=== PATIENT | male | born 1970 | race Two or more races ===

== ENCOUNTER 2019-09-22 19:04 | Inpatient (IN) | payer MEDICAID ==
[~2019-09-22] VITALS: Ht 165.1 cm; Wt 88.6 kg
--- NOTE | 2019-09-22 19:12 | NUR ---
BIBRA FOR C/O RESPIRATORY DISTRESS. PT WAS ARRIVED ON CPAP. PER RA PT WAS SATTING ON 70s ON R/A AT HOME. NO PMH OS RESIRATORY DIS WAS REPORTED, PT WAS PLACED ON A MONITRO ,SEEMS AGITATED AND UNABLE TO FOLLOW COMMANDS
[2019-09-22] MEDS ORDERED: PROPOFOL 100 ML ONE (19:23)
--- NOTE | 2019-09-22 19:23 | NUR ---
PT GOT ENTUBATED SUCCESSFULY BY DR. HARDIN, AT THE BED SIDE. SIZE: 7.5, AT LIP: 23
--- NOTE | 2019-09-22 19:25 | NUR ---
IV LINE ESTABLISHED, BLOOD DRAWN AND SENT TO LAB.
[2019-09-22] MEDS ORDERED: FENTANYL CITRAT IV 2,500 MCG in IV NS 0.9% 200 ML IV PRN (19:30)
[2019-09-22] MEDS: PROPOFOL 100 ML IV PRN ×6 (19:30→22:44)
--- NOTE | 2019-09-22 19:30 | NUR ---
URINE SPECIMEN COLLECTED VIA STRAIGHT.
--- NOTE | 2019-09-22 19:30 | NUR ---
PROPOFOL STARTED AT THE RATE OF 5MCG/KG. PT REMAINED ON CONT MONITORING,.
--- NOTE | 2019-09-22 19:35 | NUR ---
NG TUBE WAS INSERTED SUCCESSFULY
[2019-09-22 19:36] LABS: BASOPHILS # (AUTO) 0.2 /CMM (0.0-0.2); BASOPHILS % (AUTO) 1.3 % (0.0-2.0); EOSINOPHILS % (AUTO) 6.6 % (0.0-6.0); HEMATOCRIT 29 % (39-51); HEMOGLOBIN 9.3 g/dL (13.5-17.5); LYMPHOCYTES % (AUTO) 12.3 % (20.0-44.0); MEAN CORPUSCULAR HGB CONC 33 g/dl (31.0-36.0); MEAN CORPUSCULAR VOLUME 93 fL (80-96); MONOCYTES # (AUTO) 0.7 /CMM (0.1-1.30); MONOCYTES % (AUTO) 4.3 % (2.0-12.0); NEUTROPHILS % (AUTO) 75.5 % (43.0-81.0); PLATELET COUNT (AUTO) 253 /CMM (150-450); WHITE BLOOD COUNT (AUTO) 15.9 K/uL (4.3-11.0)
--- NOTE | 2019-09-22 19:43 | NUR ---
RT NOTIFIED OF PT ETA IN ER AND BIPAP EQUIPMENT CHECKED. PT ARRIVED VIA FIRE RESCUE ON CPAP MASK. MD VERBAL ORDER TO INITIATE BIPAP. PT BECAME AGITATED WITH STAFF AT THIS TIME AND WOULD NOT ALLOW THE BIPAP MASK TO BE PLACED. PT IN RESP DISTRESS AND SWINGING ARMS AND PULLING AND ROLL IN ER BED. MD ORDER TO INTUBATE PT FOR AIRWAY PROTECTION. PT INTUBATED WITH 7.5 ETT @23CM VIA GLIDESCOPE. POSITIVE COLOR CHANGE, MIST IN TUBE AND BILATERAL BREATH SOUNDS. ETT SECURED WITH TUBE DUDLEY. PT PLACED ON VENT SETTINGS AC 18 500 100% +5 WITH AN ABG TO FOLLOW. Addendum: 09/22/19 at 1948 by SANDY MADRIGAL RT Amended: Links added.
[2019-09-22 19:44] LABS: CREATININE 5.3 mg/dL (0.6-1.3)
--- NOTE | 2019-09-22 19:49 | NUR ---
CALLED NURSING SUP FOR ICU BED.
[2019-09-22 19:57] LABS: ALBUMIN 2.1 g/dL (3.4-5.0); BILIRUBIN,DIRECT 0.1 mg/dL (0.0-0.2); BILIRUBIN,TOTAL 0.2 mg/dL (0.2-1.0); TOTAL PROTEIN, SERUM 6.5 g/dL (6.4-8.2)
[2019-09-22 20:01] LABS: APPEARANCE,URINE Turbid (CLEAR); BILIRUBIN,URINE Negative (NEGATIVE); BLOOD, URINE Moderate Ery/uL (NEGATIVE); COLOR,URINE Yellow (YELLOW); KETONES,URINE Negative (NEGATIVE); LEUKOCYTE ESTERASE ,URINE Negative (NEGATIVE); NITRITE, URINE Negative (NEGATIVE); PROTEIN,URINE >=300 mg/dl (NEGATIVE); UGLUCOSE 250 MG/DL mg/dL (NEGATIVE); UROBILINOGEN,URINE 0.2 EU/dL (0.2)
[2019-09-22 20:26] LABS: RBC,URINE 21-50 /HPF (0-2)
[2019-09-22 20:27] LABS: BACTERIA,URINE Few /HPF (None Seen); SQUAMOUS EPITHELIAL CELL,UR Few /HPF (None Seen); WBC,URINE 0-2 /HPF (0-3)
[2019-09-22] MEDS ORDERED: PIPERACILLIN /TAZOBACTAM 2.25 G in IV D5W 50 ML IV ONE (20:30)
[2019-09-22] MEDS ORDERED: FUROSEMIDE 40 MG/4 ML VIAL IV ONE (20:30)
[2019-09-22] MEDS ORDERED: FUROSEMIDE 40 MG/4 ML VIAL ONE (20:39)
--- NOTE | 2019-09-22 20:45 | NUR ---
END TIME FOR LEANAN 2115 L HAND 18G
--- NOTE | 2019-09-22 20:47 | NUR ---
ROOM GIVEN ICU 263
[2019-09-22] MEDS ORDERED: VANCOMYCIN 1.25 GM in IV D5W 250 ML IV ONE (21:00)
[2019-09-22] MEDS ORDERED: ASPI-1152 PO (21:06)
[2019-09-22] MEDS ORDERED: ATOR80TA PO (21:06)
[2019-09-22] MEDS ORDERED: FURO-144 PO (21:06)
[2019-09-22] MEDS ORDERED: HYDR100T27 PO (21:06)
[2019-09-22] MEDS ORDERED: CARV25TA2 PO (21:06)
--- NOTE | 2019-09-22 21:12 | NUR ---
report given to Ilene @ ICU
[2019-09-22 21:17] LABS: ABG BASE EXCESS -11.2 mmol/L; ABG OXYGEN SATURATION 89.8 % (92.0-98.5); ABG PCO2 34.9 mmHg (35.0-45.0); ABG PH 7.253 (7.350-7.450); ABG PO2 63.5 mmHg (75.0-100.0); AaDO2 325.9 mmHg; COHb 0.4 % (0.5-1.5); MetHb 0.6 % (0.0-1.5); O2Hb 88.9 % (94.0-97.0); PEEP,BG 5 cm H2O; SITE, ABG Left Radial; VENT MODE, BG AC 18 500 60% +5; VT, ABG 500 mL
--- NOTE | 2019-09-22 21:30 | NUR ---
RECEIVED PATIENT IN NO ACUTE DISTRESS IN BED. PATIENT IS SEDATED ON PROPOFOL AT 50MCG. PATIENT IS INTUBATED ON MECHANICAL VENT VIA ETT. MECHANICAL VENT SETTING ARE AC 18, TV 500, FIO2 60, PEEP 5. PATIENT HAS NG TUBE THAT IS CLEAN DYR INTACT AND PATENT WITH FREE WATER FLUSH. PATIENT HAS TABOR CATHETER THAT IS CLEAN DRY INTACT AND PATENT WITH YELLOW URINE DRAINING. PATIENT HAS RIGHT AC 20G AND LEFT HAND 18G THAT ARE CLEAN DRY INTACT AND PATIENT. WILL CONTINUE TO MONITOR.
[2019-09-22 21:48] VITALS: BP 182/113
--- NOTE | 2019-09-22 21:51 | NUR ---
pt was transferre to ICU under ACLS
[2019-09-22] MEDS ORDERED: ONDANSETRON HCL/PF 4 MG/2 ML VIAL IVP PRN (22:00)
[2019-09-22] MEDS ORDERED: ACETAMINOPHEN 325 MG TABLET PO PRN (22:00)
[2019-09-22] MEDS ORDERED: ETOMIDATE 2 MG/ML VIAL IV ONE (22:00)
[2019-09-22] MEDS ORDERED: ROCURONIUM BROMIDE 50 MG/5 ML IV ONE (22:00)
[2019-09-22] MEDS ORDERED: Z GUARD REMEDY 2 OZ OINT TP PRN (22:00)
[2019-09-22] MEDS ORDERED: BUMETANIDE INJ 8 MG in IV NS 0.9% 48 ML IV ONE (22:00)
[2019-09-22 22:02] VITALS: BP 166/107
[2019-09-22 22:04] VITALS: BP 169/101
[2019-09-22 22:17] VITALS: BP 153/94
[2019-09-22] MEDS ORDERED: BUMETANIDE INJ 0.25 MG/ML VIAL ONE ×2 (22:32→22:37)
[2019-09-22 22:47] VITALS: BP 139/81
[2019-09-22] MEDS ORDERED: INSULIN REGULAR, HUMAN 100 UNIT/ML 3 ML VIAL SQ PRN (23:00)
[2019-09-22] MEDS ORDERED: DEXTROSE 50%-WATER 50 ML DISP.SYRIN IV PRN (23:00)
[2019-09-22 23:17] VITALS: BP 140/80
[2019-09-22] MEDS: ATORVASTATIN 40 MG TABLET NG SCH (23:30)
[2019-09-23] VITALS (47 sets, daily range): BP systolic 83–166; BP diastolic 48–100
[2019-09-23] MEDS: BLOOD SUGAR DIAGNOSTIC 1 EACH STRIP IN SCH ×5 (00:24→23:56)
[2019-09-23] MEDS: PROPOFOL 100 ML IV PRN ×6 (01:51→23:05)
--- NOTE | 2019-09-23 02:55 | NUR ---
NOTIFIED DR. RADHA ROUSE THAT PATIENT HAS CRITICAL LAB VALUE TROPONIN AT 11.004. LAST TROPONIN IS 0.242. RECEIVED ORDERS TO START HEPARIN DRIP. READ BACK ORDERS PERFORMED AND CARRIED OUT.
[2019-09-23] MEDS ORDERED: HEPARIN SODIUM, PORCINE 5000 UNITS/1 ML VIAL IV ONE (03:30)
[2019-09-23] MEDS: HEPARIN INFUSION/D5W 500 ML IV PRN ×2 (03:32→17:11)
[2019-09-23 05:00] LABS: BASOPHILS % (AUTO) 0.5 % (0.0-2.0); EOSINOPHILS % (AUTO) 0.7 % (0.0-6.0); HEMATOCRIT 22 % (39-51); HEMOGLOBIN 7.3 g/dL (13.5-17.5); LYMPHOCYTES # (AUTO) 0.7 /CMM (0.8-4.8); MEAN CORPUSCULAR HGB CONC 33 g/dl (31.0-36.0); MEAN CORPUSCULAR VOLUME 92 fL (80-96); MONOCYTES # (AUTO) 0.7 /CMM (0.1-1.30); MONOCYTES % (AUTO) 7.8 % (2.0-12.0); NEUTROPHILS # (AUTO) 7.7 /CMM (1.8-8.9); PLATELET COUNT (AUTO) 175 /CMM (150-450); WHITE BLOOD COUNT (AUTO) 9.2 K/uL (4.3-11.0)
[2019-09-23 05:17] LABS: ALBUMIN 1.6 g/dL (3.4-5.0); BILIRUBIN,TOTAL 0.2 mg/dL (0.2-1.0); CALCIUM, SERUM 6.7 mg/dL (8.5-10.1); CREATININE 5.3 mg/dL (0.6-1.3); MAGNESIUM 1.5 mg/dL (1.8-2.4); PHOSPHORUS 5.9 mg/dL (2.5-4.9); POTASSIUM 4.2 mmol/L (3.5-5.1)
[2019-09-23 05:50] LABS: THYROID STIMULATING HORMONE 1.356 uIU/mL (0.358-3.74)
[2019-09-23] MEDS ORDERED: BUMETANIDE INJ 16 MG in IV NS 0.9% 16 ML IV ONE (07:00)
--- NOTE | 2019-09-23 07:40 | NUR ---
ICU/RN PT IS INTUBATED ON THE VENT AC MODE,FIO2-50%.V/S STABLE,AFEBRILE.SEDATED ON PROPOFOL .BILATERAL WRIST RESTRAINS ON.LEFT MID LINE.ON HEPARIN DRIP.F/C DRAINING WITH YELLOW URINE.OG TUBE CLAMPED.
--- NOTE | 2019-09-23 07:47 | NUR ---
PATIENT REMAINS IN NO ACUTE DISTRESS IN BED. PATINET DID NOT HAVE ANY SIGNIFICANT CHANGE IN CONDITION DURING SHIFT. ALL NEEDS MET, ALL ORDERS CARRIED OUT. WILL ENDORSE CARE TO AM RN FOR CONTINUITY OF CARE.
[2019-09-23] MEDS: ASPIRIN EC 81 MG TABLET.DR PO SCH (08:10)
[2019-09-23] MEDS: hydrALAZINE HCL 50 MG TABLET NG SCH ×3 (08:11→16:06)
[2019-09-23] MEDS: CARVEDILOL 12.5 MG TABLET NG SCH ×2 (08:11→22:41)
[2019-09-23 08:37] LABS: ABG BASE EXCESS -6.8 mmol/L; ABG OXYGEN SATURATION 98.4 % (92.0-98.5); ABG PH 7.345 (7.350-7.450); ABG PO2 199.5 mmHg (75.0-100.0); AaDO2 118.8 mmHg; COHb 0.3 % (0.5-1.5); MetHb 0.7 % (0.0-1.5); O2Hb 97.4 % (94.0-97.0); PEEP,BG 5 cm H2O; SITE, ABG Left Radial; VT, ABG 500 mL
[2019-09-23] MEDS ORDERED: ROCURONIUM BROMIDE 50 MG/5 ML IV ONE (08:40)
[2019-09-23] MEDS ORDERED: ETOMIDATE 2 MG/ML VIAL IV ONE (08:40)
[2019-09-23] MEDS ORDERED: FEE EMEERGENCY 1 MIN EA MC ONE (08:40)
--- NOTE | 2019-09-23 08:51 | NUR ---
fio2 decreased from 50% to 30% due to pao2 199mmhg and spo2 100%. RN notified on changes. Addendum: 09/23/19 at 0852 by JOSH THOMPSON RT Amended: Links added.
[2019-09-23] MEDS ORDERED: HEPARIN SODIUM, PORCINE 5000 UNITS/1 ML VIAL SQ SCH (09:00)
--- NOTE | 2019-09-23 09:00 | NUR ---
ICU/RN DUE MEDS ARE GIVEN ORDERED.ABG DONE .MD NOTIFIED.PT PLACED ON 30% FIO2.LABS REVIEW.MG-1.5.NEW ORDERS RECEIVED.
--- NOTE | 2019-09-23 10:22 | NUR ---
WOUND CARE CONSULT: PT UNSTABLE TO BE TURNED FOR SKIN ASSESSMENT AT THIS TIME. DISCUSSED SKIN PROTECTION WITH NURSING STAFF. WILL SEE PT PT CONDITION PERMITS.
--- NOTE | 2019-09-23 12:23 | NUR ---
WOUND CARE CONSULT: PT SEEN FOR SKIN ASSESSMENT AND NOTED TO HAVE BONY SACRAL AREA WITH SCARRING AND DISCOLORATION/SCARRING TO LOWER EXTREMITIES, EDEMA AND SOME DISCOLORED AREAS TO BACK, ALL PRESENT ON ADMISSION. RECOMMENDATIONS MADE FOR SKIN PROTECTION. DISCUSSED WITH NURSING STAFF. WILL SEE PRN. CASILLAS IN AGREEMENT WITH PLAN OF CARE. Addendum: 09/23/19 at 1225 by ARELY KEEN WNDNU Amended: Links added.
[2019-09-23] MEDS: Magnesium 1GM/D5W 100ML PREMIX 100 ML IV SCH ×4 (12:32→15:54)
--- NOTE | 2019-09-23 14:00 | NUR ---
ICU/RN PT WILL HAVE HD CATHETER PLACEMENT.HEPARIN DRIP HELD, ORDERED BY DR HARE.FAMILY NOTIFIED.CONSENT FRANK.
[2019-09-23] MEDS: SOD FERRIC GLUC 125 MG in IV NS 0.9% 100 ML IV SCH (14:16)
--- NOTE | 2019-09-23 17:10 | NUR ---
ICU/RN NEW HD CATHETER PLACED ON THE RIGHT GROINS AREA.PT TOLERATED PROCEDURE WELL NO S/S OF BLEEDING NOTED. HEPARIN DRIP RESTARTED.PM CARE PROVIDED.DUE MEDS ARE GIVEN ORDERED.SUCTION PROVIDED.REPOSITION FOR COMFORT.PT IS SEDATED.V/S STABLE,AFEBRILE.
--- NOTE | 2019-09-23 19:00 | NUR ---
GAME BREEDING FARM MANAGER. PT WAS AGITATED, REACHING THE ETT. JOSH SOFT WRIST RESTRAINT INITIATED.
--- NOTE | 2019-09-23 20:22 | NUR ---
LAW INSTRUCTOR. HD STARTED NOW. WILL CONTINUE TO MONITOR
--- NOTE | 2019-09-23 20:23 | NUR ---
DRILL PRESSER. RECEIVED THE PT REST ON THE BED. ORALLY INTUBATED. SEDATED WITH DIPRIVAN. PT WAS AGITATED. JOSH SOFT WRIST RESTRAINT INITIATED.ETT 7.5,LIP 23,AC 18. TV 500,FIO2 30%,PEEP 5. SAT 06%. NO ACUTE DISTRESS NOTED. DOORSHAKER SHOWING NSR. IV LT UPPER ARM MIDLINE. RT FEMORAL HD CATH. OGT CLAMPED. HOB ELEVATED. RT AND LT HAND. IVS INTACT. HOB ELEVATED, DIPRIVAN 50MCG/KG/MIN,HEPARIN 1200UNIT. FC PATENT. URINE DRAINING. WILL CONTINUE TO MONITOR VITALS.
--- NOTE | 2019-09-23 22:35 | NUR ---
NUCLEAR OFFICER. HD OVER. NO FLUID REMOVED. DURING HD NO COMPLICATION NOTED.
[2019-09-23] MEDS: ATORVASTATIN 40 MG TABLET NG SCH (22:40)
[2019-09-24] VITALS (40 sets, daily range): BP systolic 108–158; BP diastolic 58–81
[2019-09-24 04:15] LABS: BASOPHILS # (AUTO) 0.1 /CMM (0.0-0.2); BASOPHILS % (AUTO) 0.7 % (0.0-2.0); EOSINOPHILS % (AUTO) 6.9 % (0.0-6.0); HEMATOCRIT 22 % (39-51); HEMOGLOBIN 7.4 g/dL (13.5-17.5); LYMPHOCYTES # (AUTO) 0.6 /CMM (0.8-4.8); LYMPHOCYTES % (AUTO) 8.8 % (20.0-44.0); MEAN CORPUSCULAR HGB CONC 34 g/dl (31.0-36.0); MEAN CORPUSCULAR VOLUME 90 fL (80-96); MONOCYTES # (AUTO) 0.6 /CMM (0.1-1.30); MONOCYTES % (AUTO) 8.4 % (2.0-12.0); NEUTROPHILS # (AUTO) 5.4 /CMM (1.8-8.9); NEUTROPHILS % (AUTO) 75.2 % (43.0-81.0); PLATELET COUNT (AUTO) 151 /CMM (150-450); RED BLOOD CELL COUNT(AUTO) 2.41 MIL/uL (4.5-6.0); WHITE BLOOD COUNT (AUTO) 7.2 K/uL (4.3-11.0)
--- NOTE | 2019-09-24 04:29 | NUR ---
HUB CUTTER. AM CARE, ORAL CARE, BED BATH GIVEN. LINEN CHANGED, REMAINING SAME VENT SETTING TOLERATED WELL. SAT 98%. NO ACUTE DISTRESS NOTED, PHYSICIAN CODING SPECIALIST SHOWING NSR. IV RT UPPER ARM PICC LINE. DIPRIVAN 50MCG/KG/MIN. HEPARIN 1200UNIT/H. FC PATENT URINE DRAINING. JOSH SOFT WRIST RESTRAINT CHECKED AND RELEASED. NO INJURY OR REDNESS NOTED, NGT CLAMPED. WILL CONTINUE TO MONITOR VITALS,
[2019-09-24 04:54] LABS: ALBUMIN 1.5 g/dL (3.4-5.0); BILIRUBIN,TOTAL 0.2 mg/dL (0.2-1.0); CALCIUM, SERUM 7.6 mg/dL (8.5-10.1); MAGNESIUM 2.2 mg/dL (1.8-2.4); PHOSPHORUS 4.1 mg/dL (2.5-4.9); POTASSIUM 3.5 mmol/L (3.5-5.1); TOTAL PROTEIN, SERUM 4.9 g/dL (6.4-8.2)
[2019-09-24] MEDS: PROPOFOL 100 ML IV PRN ×6 (05:32→23:24)
[2019-09-24] MEDS: BLOOD SUGAR DIAGNOSTIC 1 EACH STRIP IN SCH ×3 (05:56→18:00)
[2019-09-24] MEDS ORDERED: POTASSIUM CHLORIDE 20 MEQ POWDER PACKET NG SCH (07:30)
[2019-09-24] MEDS ORDERED: BUMETANIDE INJ 6 MG in IV NS 0.9% 36 ML IV ONE (07:30)
[2019-09-24] MEDS ORDERED: BUMETANIDE INJ 16 MG in IV NS 0.9% 16 ML IV ONE (07:30)
[2019-09-24] MEDS: ASPIRIN EC 81 MG TABLET.DR PO SCH (08:30)
[2019-09-24] MEDS: CARVEDILOL 12.5 MG TABLET NG SCH ×2 (08:31→21:20)
[2019-09-24] MEDS: hydrALAZINE HCL 50 MG TABLET NG SCH ×3 (08:32→17:34)
[2019-09-24 09:17] LABS: ABG BASE EXCESS 1.6 mmol/L; ABG OXYGEN SATURATION 96.4 % (92.0-98.5); ABG PCO2 31.5 mmHg (35.0-45.0); ABG PO2 95.7 mmHg (75.0-100.0); AaDO2 81.2 mmHg; COHb 0.3 % (0.5-1.5); MetHb 1.3 % (0.0-1.5); O2Hb 94.9 % (94.0-97.0); PEEP,BG 5 cm H2O; SITE, ABG Left Radial; VT, ABG 500 mL
--- NOTE | 2019-09-24 09:50 | NUR ---
vent changes below per dr. kelly: MARCELLUS 12 Addendum: 09/24/19 at 0951 by JOSH THOMPSON RT Amended: Links added.
[2019-09-24] MEDS: HEPARIN SODIUM, PORCINE 5000 UNITS/1 ML VIAL SQ SCH ×2 (11:55→21:18)
[2019-09-24] MEDS: SOD FERRIC GLUC 125 MG in IV NS 0.9% 100 ML IV SCH (14:01)
[2019-09-24] MEDS: ATORVASTATIN 40 MG TABLET NG SCH (21:20)
[2019-09-25] VITALS (72 sets, daily range): BP systolic 105–190; BP diastolic 54–105
[2019-09-25] MEDS: PROPOFOL 100 ML IV PRN ×2 (03:18→05:43)
[2019-09-25 04:40] LABS: BASOPHILS # (AUTO) 0.1 /CMM (0.0-0.2); BASOPHILS % (AUTO) 0.8 % (0.0-2.0); EOSINOPHILS % (AUTO) 9.8 % (0.0-6.0); HEMATOCRIT 21 % (39-51); LYMPHOCYTES # (AUTO) 0.9 /CMM (0.8-4.8); LYMPHOCYTES % (AUTO) 13.4 % (20.0-44.0); MEAN CORPUSCULAR HGB CONC 33 g/dl (31.0-36.0); MEAN CORPUSCULAR VOLUME 92 fL (80-96); MONOCYTES # (AUTO) 0.7 /CMM (0.1-1.30); MONOCYTES % (AUTO) 10.9 % (2.0-12.0); NEUTROPHILS # (AUTO) 4.3 /CMM (1.8-8.9); NEUTROPHILS % (AUTO) 65.1 % (43.0-81.0); PLATELET COUNT (AUTO) 155 /CMM (150-450); RED BLOOD CELL COUNT(AUTO) 2.28 MIL/uL (4.5-6.0); WHITE BLOOD COUNT (AUTO) 6.6 K/uL (4.3-11.0)
[2019-09-25 05:04] LABS: ALBUMIN 1.5 g/dL (3.4-5.0); BILIRUBIN,TOTAL 0.3 mg/dL (0.2-1.0); CALCIUM, SERUM 7.2 mg/dL (8.5-10.1); CREATININE 5.1 mg/dL (0.6-1.3); MAGNESIUM 2.1 mg/dL (1.8-2.4); PHOSPHORUS 6.1 mg/dL (2.5-4.9); POTASSIUM 3.9 mmol/L (3.5-5.1); TOTAL PROTEIN, SERUM 4.8 g/dL (6.4-8.2)
[2019-09-25 05:31] LABS: HEMOGLOBIN 6.9 g/dL (13.5-17.5)
[2019-09-25] MEDS: BLOOD SUGAR DIAGNOSTIC 1 EACH STRIP IN SCH ×5 (06:00→23:30)
[2019-09-25 06:02] LABS: EOSINOPHILS % (MANUAL) 8 % (0-4); LYMPHOCYTES % (MANUAL) 8 % (16-48); MONOCYTES % (MANUAL) 9 % (0-11.0); NEUTROPHILS % (MANUAL) 75 (42-76)
--- NOTE | 2019-09-25 07:15 | NUR ---
PASTRY SOUS CHEF OPENING NOTE RECEIVED REPORT FROM PM NURSE. PATIENT IN BED. ORALLY INTUBATED. SEDATED WITH DIPRIVAN.ON JOSH SOFT WRIST RESTRAINT.VISUAL CHECK DONE.ETT 7.5,LIP 23. NO ACUTE DISTRESS NOTED. ZUMBA INSTRUCTOR SHOWING NSR. IV LT UPPER ARM MIDLINE. RT FEMORAL HD CATH. OGT CLAMPED. HOB ELEVATED. RT AND LT HAND. IVS INTACT. HOB ELEVATED, DIPRIVAN 50MCG/KG/MIN. TABOR CATH DRAINING CLEAR YELLOW URINE.BED IS LOW AND IN LOCKED POSITION.CALL LIGHT IN REACH.BED ALARM ON .SRX3.WILL CONTINUE TO MONITOR.
--- NOTE | 2019-09-25 08:15 | NUR ---
SYSTEM ADMIN NOTE PATIENT STARTED ON SIMV TRIAL.NO SOB NO DISTRESS NOTED.TOLERATING SETTINGS WELL.PATIENT ALERT.FOLLOWING COMMANDS.RESTLESS.MATHEMATICAL SCIENTIST AT BEDSIDE WATCHING PATIENT. WILL CONTINUE TO MONITOR.
--- NOTE | 2019-09-25 08:30 | NUR ---
PROFESSOR OF GEOLOGY NOTE SEEN BY .UPDATED ABOUT PATIENT CONDITION WITH LABS.GOT NEW ORDER TO DO ABG @0845.PATIENT ON SIMV TRIAL.TOLERATING SETTINGS WELL.SAFETY AND ASPIRATION MEASURES IN PLACE.ALERT.FOLLOWING COMMANDS.TO DO BLOOD TRANSFUSION PREFERABLY WITH HEMODIALYSIS.WILL CONTINUE TO MONITOR.
[2019-09-25] MEDS: hydrALAZINE HCL 50 MG TABLET NG SCH ×3 (08:56→17:42)
[2019-09-25] MEDS: ASPIRIN EC 81 MG TABLET.DR PO SCH (08:56)
[2019-09-25] MEDS: CARVEDILOL 12.5 MG TABLET NG SCH (08:56)
[2019-09-25 09:00] LABS: ABG BASE EXCESS -4.4 mmol/L; ABG PH 7.363 (7.350-7.450); ABG PO2 109.3 mmHg (75.0-100.0); AaDO2 61.1 mmHg; MetHb 0.7 % (0.0-1.5); O2Hb 96.3 % (94.0-97.0); SITE, ABG Right Radial
[2019-09-25] MEDS: HEPARIN SODIUM, PORCINE 5000 UNITS/1 ML VIAL SQ SCH ×2 (09:00→20:35)
--- NOTE | 2019-09-25 09:15 | NUR ---
MECHANICAL ENGINEERING LECTURER NOTE ABG DONE.RELAYED RESULT TO BY RT.GOT AN ORDER FOR EXTUBATE THE PATIENT.PATIENT GOT EXTUBATED.PLACED ON 2L NASAL.SATURATING 98%.NO SOB NO DISTRESS NOTED.AXOX3.PATIENT COMFORTABLE.NO C/O PAIN.WILL CONTINUE TO MONITOR.
--- NOTE | 2019-09-25 09:23 | NUR ---
PER DR ACE ORDERS PATIENT WAS WEANED AND EXTUBATED. PLACED ON SUPPLEMENTAL O2 TOLERATING WELL. PATIENT AWAKE, ALERT AND RESPONDING TO COMMANDS. NO SOB REPORTED. JENNIFER LÓPEZ AT BEDSIDE. CONT TO MONITOR. Addendum: 09/25/19 at 0924 by PETER PRESCOTT RT Amended: Links added.
--- NOTE | 2019-09-25 09:29 | NUR ---
RETURNED ITEM CLERK NOTE SEEN BY .PATIENT HAS LOW H/H.HOLDING HEPARIN PER HIS ORDER.RECOMMENDING ANGIOGRAM.PATIENT NEED TIME TO THINK ABOUT IT AND WILL LET US KNOW LATER.WILL F/U WITH PATIENT DECISION LATER.WILL CONTINUE TO MONITOR.
[2019-09-25] MEDS ORDERED: BUMETANIDE INJ 3 MG in IV NS 0.9% 48 ML IV ONE (09:30)
[2019-09-25] MEDS: SOD FERRIC GLUC 125 MG in IV NS 0.9% 100 ML IV SCH (14:37)
--- NOTE | 2019-09-25 16:07 | NUR ---
GENETICS NURSE NOTE PATIENT IS OK TO DO ANGIOGRAM.FAMILY WAS AT BEDSIDE.EXPLAINED TO THE FAMILY AND PATIENT ANSWERED ALL QUESTIONS. MADE AWARE.NURSE FROM RECEIVING TELLER SEEN PATIENT AND EXPLAINED THE PROCEDURE.OK TO DO PROCEDURE.NEED MORE TIME TO SIGN THE CONSENT.ONGOING HEMODIALYSIS.HD NURSE AT BEDSIDE.GIVEN 1 PRBC FOR TRANSFUSE WITH HD.WILL CONTINUE TO MONITOR.
--- NOTE | 2019-09-25 16:35 | NUR ---
JR. JAVA DEVELOPER NOTE S/P BLOOD TRANSFUSION 1 PRBC WITH DIALYSIS.NO S/S OF ALLERGIC REACTION NOTED.VITAL SIGNS STABLE.PATIENT AXOX4.SIGNED CONSENT FOR ANGIOGRAM.ONGOING HD.HE REQUESTING FAMILY TO MEET HIM AFTER DIALYSIS.HE DONT WANT HIS MOM TO SEE HE IS ON DIALYSIS.SISTER JOAN MADE AWARE THAT HIS REQUEST TO VISIT AFTER 6 PM. WILL CONTINUE TO MONITOR.
[2019-09-25] MEDS ORDERED: ATORVASTATIN 40 MG TABLET NG SCH (17:16)
[2019-09-25] MEDS ORDERED: ATORVASTATIN 40 MG TABLET GT SCH (17:16)
[2019-09-25] MEDS ORDERED: ACETAMINOPHEN 650 MG/20.3 ML UDC GT PRN (17:30)
[2019-09-25] MEDS ORDERED: PHARMACY TO CHANGE GT/NG MEDS TO PO XX PRN (17:30)
[2019-09-25] MEDS ORDERED: ACETAMINOPHEN 650 MG/20.3 ML UDC NG PRN (17:30)
[2019-09-25] MEDS ORDERED: ACETAMINOPHEN 650 MG/20.3 ML UDC PO PRN (17:30)
--- NOTE | 2019-09-25 19:10 | NUR ---
MANAGER BEVERAGE CLOSING NOTE PATIENT IN BED. S/P EXTUBATION IN AM.ON O2 2L VIA NASAL CANULA.NO SOB NO ACUTE DISTRESS NOTED. SATURATING 97%.ON ORTHOPEDIC BRACE MAKER SHOWING NSR.HR IN 80'S. IV LT UPPER ARM MIDLINE. RT FEMORAL HD CATH. RT AND LT HAND. IVS INTACT. HOB ELEVATED.TABOR CATH DRAINING CLEAR YELLOW URINE.BED IS LOW AND IN LOCKED POSITION.CALL LIGHT IN REACH.BED ALARM ON .SRX3.FAMILY AT BEDSIDE.WILL ENDORSE TO PM NURSE FOR ANGEL.
[2019-09-25] MEDS ORDERED: diphenhydrAMINE HCL 50 MG/ML VIAL IV PRN (21:30)
[2019-09-25] MEDS: ATORVASTATIN 40 MG TABLET PO SCH (21:44)
[2019-09-25] MEDS: CARVEDILOL 12.5 MG TABLET PO SCH (21:45)
[2019-09-26] VITALS (52 sets, daily range): BP systolic 130–176; BP diastolic 56–102
[2019-09-26] MEDS: METOPROLOL TARTRATE INJ 5 MG/5 ML AMPUL IVP PRN ×3 (00:32→17:40)
[2019-09-26 04:32] LABS: BASOPHILS # (AUTO) 0.1 /CMM (0.0-0.2); BASOPHILS % (AUTO) 0.7 % (0.0-2.0); EOSINOPHILS % (AUTO) 16.1 % (0.0-6.0); HEMATOCRIT 24 % (39-51); HEMOGLOBIN 7.9 g/dL (13.5-17.5); LYMPHOCYTES # (AUTO) 1.1 /CMM (0.8-4.8); LYMPHOCYTES % (AUTO) 14.3 % (20.0-44.0); MEAN CORPUSCULAR HGB CONC 33 g/dl (31.0-36.0); MEAN CORPUSCULAR VOLUME 91 fL (80-96); MONOCYTES # (AUTO) 0.9 /CMM (0.1-1.30); MONOCYTES % (AUTO) 12.3 % (2.0-12.0); NEUTROPHILS # (AUTO) 4.3 /CMM (1.8-8.9); NEUTROPHILS % (AUTO) 56.6 % (43.0-81.0); PLATELET COUNT (AUTO) 134 /CMM (150-450); RED BLOOD CELL COUNT(AUTO) 2.66 MIL/uL (4.5-6.0); WHITE BLOOD COUNT (AUTO) 7.6 K/uL (4.3-11.0)
[2019-09-26 04:44] LABS: ALBUMIN 1.5 g/dL (3.4-5.0); BILIRUBIN,TOTAL 0.4 mg/dL (0.2-1.0); CALCIUM, SERUM 7.8 mg/dL (8.5-10.1); CREATININE 4.4 mg/dL (0.6-1.3); MAGNESIUM 2.1 mg/dL (1.8-2.4); PHOSPHORUS 5.6 mg/dL (2.5-4.9); POTASSIUM 3.7 mmol/L (3.5-5.1); TOTAL PROTEIN, SERUM 5.1 g/dL (6.4-8.2)
[2019-09-26] MEDS ORDERED: IODIXANOL 150 ML IV ONE ×2 (06:13→08:10)
[2019-09-26] MEDS ORDERED: IV NS 0.9% 1,000 ML ONE (06:15)
[2019-09-26] MEDS ORDERED: IV SET PRIMARY PUMP SET 1 EA INFUS.SET MC ONE ×2 (06:15→08:03)
[2019-09-26] MEDS ORDERED: LIDOCAINE HCL/PF 1% 30 ML SDV ONE (06:16)
[2019-09-26] MEDS ORDERED: VERAPAMIL HCL IV 5 MG/2 ML VIAL ONE (06:16)
[2019-09-26] MEDS ORDERED: NITROGLYCERIN ICAR 1,000 MCG/10 ML VIAL ICAR ONE (06:16)
[2019-09-26] MEDS: BLOOD SUGAR DIAGNOSTIC 1 EACH STRIP IN SCH ×4 (06:53→23:10)
--- NOTE | 2019-09-26 07:00 | NUR ---
received pt from night auditor, alert, follow commands, SR, on 2L 02 sat well, lungs partially congested, f/c low output HD pt, v/s stable, no pain, pt is going to be taken to technology lab teacher.
--- NOTE | 2019-09-26 07:15 | NUR ---
BEING TAKEN TO TRAVEL RN OR, NO DISTRESS NOTED OR VOICED
[2019-09-26] MEDS ORDERED: FENTANYL PF 100MCG/2ML AMPUL ONE (07:33)
[2019-09-26] MEDS ORDERED: HEPARIN SODIUM, PORCINE 1,000 UNIT/ML VIAL ONE (07:33)
[2019-09-26] MEDS ORDERED: MIDAZOLAM HCL 2 MG/2ML VIAL ONE (07:33)
[2019-09-26] MEDS ORDERED: IV NS 0.9% 50 ML IV ONE (08:02)
[2019-09-26] MEDS ORDERED: IODIXANOL 320MG/ML 50 ML IV ONE (08:20)
[2019-09-26] MEDS ORDERED: CLOPIDOGREL BISULFATE 300 MG TABLET ONE (08:21)
[2019-09-26] MEDS ORDERED: ASPIRIN 81 MG TAB.CHEW ONE (08:32)
[2019-09-26] MEDS ORDERED: HEPARIN SODIUM, PORCINE 5000 UNITS/1 ML VIAL ONE (08:33)
[2019-09-26] MEDS: HEPARIN SODIUM, PORCINE 5000 UNITS/1 ML VIAL SQ SCH ×2 (09:00→21:04)
[2019-09-26] MEDS: ASPIRIN EC 81 MG TABLET.DR PO SCH (09:00)
[2019-09-26] MEDS ORDERED: ASPIRIN 81 MG TAB.CHEW NG SCH (09:00)
--- NOTE | 2019-09-26 09:10 | NUR ---
pt back from metallurgy laboratory technician, a/o x4, v/s stable, no pain, TR band on, no bleeding noted, pulses are palpable, friend at the bedside
--- NOTE | 2019-09-26 09:20 | NUR ---
blood thinner med not given - heparin high dose given in labview programmer.
[2019-09-26] MEDS: CARVEDILOL 12.5 MG TABLET PO SCH ×2 (09:24→21:07)
[2019-09-26] MEDS: hydrALAZINE HCL 50 MG TABLET PO SCH ×3 (09:25→16:22)
[2019-09-26] MEDS ORDERED: BUMETANIDE INJ 6 MG in IV NS 0.9% 36 ML IV ONE (10:00)
--- NOTE | 2019-09-26 12:16 | NUR ---
pt is resting in the bed, TR band off, no bleeding noted, pulses palpable, v/s stable, no pain, family at the bedside.
[2019-09-26] MEDS: diphenhydrAMINE HCL 50 MG/ML VIAL IV PRN ×2 (13:38→23:10)
[2019-09-26] MEDS: SOD FERRIC GLUC 125 MG in IV NS 0.9% 100 ML IV SCH (15:05)
--- NOTE | 2019-09-26 16:07 | NUR ---
pt is resting in the bed, a/o x4, SR, on 2L 02 sat well, tolerates diet, v/s stable, no pain, pt cleaned and changed.
[2019-09-26] MEDS: ATORVASTATIN 40 MG TABLET PO SCH (21:07)
[2019-09-26] MEDS: ACETAMINOPHEN 325 MG TABLET PO PRN (21:07)
[2019-09-27] VITALS (15 sets, daily range): BP systolic 136–166; BP diastolic 63–86
[2019-09-27] MEDS: METOPROLOL TARTRATE INJ 5 MG/5 ML AMPUL IVP PRN (00:29)
--- NOTE | 2019-09-27 04:00 | NUR ---
HAD UNEVENTFUL NIGHT MEDICATED FOR ITCHING AND HIGH B/P.VSS
[2019-09-27 04:48] LABS: BASOPHILS # (AUTO) 0.1 /CMM (0.0-0.2); BASOPHILS % (AUTO) 0.8 % (0.0-2.0); EOSINOPHILS % (AUTO) 17.7 % (0.0-6.0); HEMATOCRIT 24 % (39-51); LYMPHOCYTES # (AUTO) 0.8 /CMM (0.8-4.8); LYMPHOCYTES % (AUTO) 10.4 % (20.0-44.0); MEAN CORPUSCULAR HGB CONC 34 g/dl (31.0-36.0); MEAN CORPUSCULAR VOLUME 91 fL (80-96); MONOCYTES # (AUTO) 0.8 /CMM (0.1-1.30); MONOCYTES % (AUTO) 10.7 % (2.0-12.0); NEUTROPHILS # (AUTO) 4.5 /CMM (1.8-8.9); NEUTROPHILS % (AUTO) 60.4 % (43.0-81.0); PLATELET COUNT (AUTO) 137 /CMM (150-450); RED BLOOD CELL COUNT(AUTO) 2.62 MIL/uL (4.5-6.0); WHITE BLOOD COUNT (AUTO) 7.5 K/uL (4.3-11.0)
[2019-09-27 05:01] LABS: CALCIUM, SERUM 7.5 mg/dL (8.5-10.1); CREATININE 5.3 mg/dL (0.6-1.3); PHOSPHORUS 6.7 mg/dL (2.5-4.9); POTASSIUM 3.9 mmol/L (3.5-5.1)
[2019-09-27] MEDS: BLOOD SUGAR DIAGNOSTIC 1 EACH STRIP IN SCH ×3 (06:39→17:21)
--- NOTE | 2019-09-27 08:16 | NUR ---
received pt from car shifter, s/p PCI stent placement 09/26, a/o x4, SR, on 2L 02, sat well, lungs partially congested, no edema, tolerates diet, f/c good output, v/s stable, no pain, pt turns and repositions by himself.
[2019-09-27] MEDS: ASPIRIN EC 81 MG TABLET.DR PO SCH (08:35)
[2019-09-27] MEDS: CARVEDILOL 12.5 MG TABLET PO SCH ×2 (08:35→21:10)
[2019-09-27] MEDS: hydrALAZINE HCL 50 MG TABLET PO SCH ×3 (08:35→16:07)
[2019-09-27] MEDS: CLOPIDOGREL BISULFATE 75 MG TABLET PO SCH (08:36)
[2019-09-27] MEDS: HEPARIN SODIUM, PORCINE 5000 UNITS/1 ML VIAL SQ SCH ×2 (08:37→21:10)
[2019-09-27] MEDS: diphenhydrAMINE HCL 50 MG/ML VIAL IV PRN (08:42)
[2019-09-27] MEDS: MENTHOL/CETYLPYRD (CEPACOL) 1 LOZ LOZENGE PO PRN ×2 (09:11→16:07)
--- NOTE | 2019-09-27 12:26 | NUR ---
pt transferred to [facility], [place].
[2019-09-27] MEDS: SOD FERRIC GLUC 125 MG in IV NS 0.9% 100 ML IV SCH (14:08)
--- NOTE | 2019-09-27 18:31 | NUR ---
MS RN END OF SHIFT SUMMARY 1200 PT ARRIVED TO MS 2 IN STABLE CONDITION VIA GURNEY. PT IS A/O X4, AFEBRILE. RESPIRATIONS ARE EVEN AND UNLABORED, NOT IN ANY ACUTE DISTRESS NOTED. PT DENIES ANY CHEST PAIN. CURRENTLY ON O2@2L/MIN VIA NC, SATURATING 99%. PUPILS ARE REACTIVE TO LIGHT, BILATERAL HAND SALES OPERATIONS COORDINATOR ARE STRONG AND EQUAL. ABDOMEN IS SOFT AND NONDISTENDED, +BOWEL SOUNDS, +FLATUS. TOLERATING PO W/ NO N/V. CURRENTLY HAS A TABOR CATH DRAINING GOOD YELLOW UOP, TUBING FREE OF KINKS. ANDERSON MIDLINE AND LEFT HAND G18 INTACT, NO INFILTRATION NOTED. SKIN KEPT CDI. SAFETY MEASURES ARE IN PLACE. CALL LIGHT IS LEFT WITHIN REACH. WILL CONTINUE TO MONITOR AND ENDORSE TO NEXT SHIFT.
--- NOTE | 2019-09-27 19:00 | NUR ---
MS RN NOTE RECEIVED PT IN STABLE CONDITION A/O X3, NOTED IN BED WITH GUESTS AT BEDSIDE. NO SIGNS OF SOB OR DISTRESS, NO C/O PAIN OR N/V. ANDERSON MIDLINE IN PLACE S/L. NOTED TABOR WITH ADEQUATE URINE DRAINING. ALL CURRENT NEEDS ATTENDED TO. SAFETY PRECAUTIONS IN PLACE. WILL CONT. TO MONITOR.
[2019-09-27] MEDS: ATORVASTATIN 40 MG TABLET PO SCH (21:10)
[2019-09-28] MEDS: BLOOD SUGAR DIAGNOSTIC 1 EACH STRIP IN SCH ×5 (00:15→21:35)
[2019-09-28 07:39] LABS: BASOPHILS % (AUTO) 0.5 % (0.0-2.0); EOSINOPHILS % (AUTO) 16.2 % (0.0-6.0); HEMATOCRIT 23 % (39-51); HEMOGLOBIN 7.7 g/dL (13.5-17.5); LYMPHOCYTES # (AUTO) 0.9 /CMM (0.8-4.8); LYMPHOCYTES % (AUTO) 12.1 % (20.0-44.0); MEAN CORPUSCULAR HGB CONC 33 g/dl (31.0-36.0); MEAN CORPUSCULAR VOLUME 91 fL (80-96); MONOCYTES # (AUTO) 0.8 /CMM (0.1-1.30); MONOCYTES % (AUTO) 10.5 % (2.0-12.0); NEUTROPHILS # (AUTO) 4.4 /CMM (1.8-8.9); NEUTROPHILS % (AUTO) 60.7 % (43.0-81.0); PLATELET COUNT (AUTO) 145 /CMM (150-450); RED BLOOD CELL COUNT(AUTO) 2.56 MIL/uL (4.5-6.0); WHITE BLOOD COUNT (AUTO) 7.2 K/uL (4.3-11.0)
--- NOTE | 2019-09-28 07:48 | NUR ---
MS RN OPENING NOTE PATIENT IN BED RESTING COMFORTABLY. PATIENT IN NO ACUTE DISTRESS. NO SOB NOTED. PATIENT BREATHING IS EVEN AND UNLABORED. DR. BAILEY SEEN AND EVALUATED PATIENT. PER DR. LYNN ESPINOZA TABOR AND KEEP PATIENT ON ROOM AIR IF PATIENT SATURATING >92% SPO2. PATIENT IS SATURATING AT 94% SPO2 ON ROOM AIR, KEPT AT ROOM AIR. PATIENT SAFETY PRECAUTIONS IN PLACE. PATIENT BED IS LOCKED AND IN LOWEST POSITION. CALL LIGHT WITHIN REACH. WILL CONTINUE TO MONITOR.
[2019-09-28 08:00] VITALS: BP 143/79
--- NOTE | 2019-09-28 08:00 | NUR ---
MS RN NOTE PATIENT VOIDED AFTER TABOR CATHETER REMOVAL. PATIENT TOLERATING WELL, URINE IS CLEAR AND YELLOW. WILL CONTINUE TO MONITOR.
[2019-09-28 08:30] LABS: ALBUMIN 1.5 g/dL (3.4-5.0); BILIRUBIN,TOTAL 0.3 mg/dL (0.2-1.0); CALCIUM, SERUM 7.2 mg/dL (8.5-10.1); CREATININE 6.8 mg/dL (0.6-1.3); MAGNESIUM 2.1 mg/dL (1.8-2.4); PHOSPHORUS 6.8 mg/dL (2.5-4.9); TOTAL PROTEIN, SERUM 5.1 g/dL (6.4-8.2)
[2019-09-28] MEDS: CLOPIDOGREL BISULFATE 75 MG TABLET PO SCH (08:47)
[2019-09-28] MEDS: HEPARIN SODIUM, PORCINE 5000 UNITS/1 ML VIAL SQ SCH ×2 (08:47→21:36)
[2019-09-28] MEDS: hydrALAZINE HCL 50 MG TABLET PO SCH ×3 (08:48→17:10)
[2019-09-28] MEDS: ASPIRIN EC 81 MG TABLET.DR PO SCH (08:48)
[2019-09-28] MEDS: CARVEDILOL 12.5 MG TABLET PO SCH ×2 (08:48→21:35)
--- NOTE | 2019-09-28 12:14 | NUR ---
MS RN NOTE PATIENT BLOOD SUGAR 108. NO INSULIN COVERAGE PER PROTOCOL.
[2019-09-28 16:00] VITALS: BP 165/87
--- NOTE | 2019-09-28 17:13 | NUR ---
MS RN NOTE PATIENT BLOOD SUGAR IS 112. NO INSULIN COVERAGE PER PROTOCOL.
--- NOTE | 2019-09-28 18:58 | NUR ---
MS RN CLOSING NOTE PATIENT IN BED RESTING COMFORTABLY. PATIENT IN NO ACUTE DISTRESS. NO SOB NOTED. PATIENT BREATHING IS EVEN AND UNLABORED. PATIENT IN NO PAIN AT THIS TIME. PATIENT KEPT CLEAN, DRY AND COMFORTABLE THROUGHOUT SHIFT. SAFETY PRECAUTIONS IN PLACE. IVS PATENT AND INTACT. PATIENT BED IS LOCKED AND IN LOWEST POSITION. CALL LIGHT WITHIN REACH. WILL ENDORSE CARE TO PM SHIFT FOR ANGEL.
--- NOTE | 2019-09-28 20:10 | NUR ---
MS RN NOTES RECEIVED PATIENT AWAKE IN BED WITH NO DISTRESS NOTED. CALL LIGHT WITHIN REACH. NO C/O PAIN OR DISCOMFORT. PERIPHERAL LINES INTACT AND PATENT. R FEMORAL HD CATH INTACT. ENCOURAGED USE OF CALL LIGHT FOR ASSISTANCE AND VERBALIZE GOOD UNDERSTANDING. BED IN LOW LOCK SETTING. ROOM FREE OF CLUTTER AND BELONGINGS KEPT NEAR BEDSIDE. WILL CONTINUE TO MONITOR.
[2019-09-28 20:21] VITALS: BP 137/72
[2019-09-28] MEDS: ATORVASTATIN 40 MG TABLET PO SCH (21:35)
[2019-09-29 06:36] LABS: BASOPHILS % (AUTO) 0.7 % (0.0-2.0); EOSINOPHILS % (AUTO) 15.7 % (0.0-6.0); HEMATOCRIT 23 % (39-51); HEMOGLOBIN 7.5 g/dL (13.5-17.5); LYMPHOCYTES # (AUTO) 0.9 /CMM (0.8-4.8); LYMPHOCYTES % (AUTO) 12.7 % (20.0-44.0); MEAN CORPUSCULAR HGB CONC 33 g/dl (31.0-36.0); MEAN CORPUSCULAR VOLUME 90 fL (80-96); MONOCYTES # (AUTO) 0.8 /CMM (0.1-1.30); MONOCYTES % (AUTO) 11.7 % (2.0-12.0); NEUTROPHILS # (AUTO) 4.1 /CMM (1.8-8.9); NEUTROPHILS % (AUTO) 59.2 % (43.0-81.0); PLATELET COUNT (AUTO) 116 /CMM (150-450); WHITE BLOOD COUNT (AUTO) 6.9 K/uL (4.3-11.0)
[2019-09-29] MEDS: BLOOD SUGAR DIAGNOSTIC 1 EACH STRIP IN SCH ×4 (06:54→21:40)
--- NOTE | 2019-09-29 06:56 | NUR ---
MS RN NOTES PATIENT ASLEEP IN BED WITH NO DISTRESS NOTED. CALL LIGHT WITHIN REACH. ALL DUE MEDS GIVEN ORDERED WITH NO ASE. NO C/O PAIN OR DISCOMFORT. PERIPHERAL LINES INTACT AND PATENT. R FEMORAL HD CATH INTACT. BED IN LOW LOCK SETTING. ROOM FREE OF CLUTTER AND BELONGINGS KEPT NEAR BEDSIDE. WILL ENDORSE TO ONCOMING SHIFT.
[2019-09-29 07:08] LABS: CALCIUM, SERUM 7.6 mg/dL (8.5-10.1); PHOSPHORUS 5.7 mg/dL (2.5-4.9); POTASSIUM 3.9 mmol/L (3.5-5.1)
[2019-09-29] MEDS ORDERED: DEXTROSE 50%-WATER 50 ML DISP.SYRIN IV PRN (07:24)
[2019-09-29] MEDS ORDERED: INSULIN REGULAR, HUMAN 100 UNIT/ML 3 ML VIAL SQ PRN (07:24)
[2019-09-29 08:00] VITALS: BP 156/76
[2019-09-29] MEDS: CLOPIDOGREL BISULFATE 75 MG TABLET PO SCH (08:26)
[2019-09-29] MEDS: ASPIRIN EC 81 MG TABLET.DR PO SCH (08:26)
[2019-09-29] MEDS: CARVEDILOL 12.5 MG TABLET PO SCH ×2 (08:27→20:53)
[2019-09-29] MEDS: hydrALAZINE HCL 50 MG TABLET PO SCH ×3 (08:27→17:33)
[2019-09-29] MEDS: HEPARIN SODIUM, PORCINE 5000 UNITS/1 ML VIAL SQ SCH ×2 (08:30→20:52)
--- NOTE | 2019-09-29 09:07 | NUR ---
MS/RN Medications Morning medications administered as ordered.
--- NOTE | 2019-09-29 14:00 | NUR ---
MS/RN S/B Dr Aldrich Seen by Dr Aldrich - major case detective to arrange out patient dialysis prior to being discharged.
[2019-09-29 16:00] VITALS: BP 143/72
--- NOTE | 2019-09-29 18:37 | NUR ---
MS/RN End note Patient remains in stable condition. Last blood sugar 136, as per sliding scale, 2 units regular insulin ordered. Denies pain or discomfort, no shortness of breath. Will endores to home health physical therapist.
--- NOTE | 2019-09-29 19:00 | NUR ---
Received pt alert and orientated. smiling states he is not hungry tonight. denies pain.
[2019-09-29 20:00] VITALS: BP 128/63
[2019-09-29] MEDS: ATORVASTATIN 40 MG TABLET PO SCH (21:43)
[2019-09-30] VITALS (7 sets, daily range): BP systolic 118–186; BP diastolic 76–93
[2019-09-30] MEDS ORDERED: LOPERAMIDE HCL (2 MG CAP) 2 MG CAPSULE PO PRN (04:00)
--- NOTE | 2019-09-30 05:46 | NUR ---
Remains alert and orientated X4. Complains his stool are mushy and frequent, and wants me to call the MD or take him to the ER. Texted MD Comer and got an order for Imodine. One take give as ordered, instructed pt to go in the container so I can see.
[2019-09-30 06:18] LABS: BASOPHILS # (AUTO) 0.1 /CMM (0.0-0.2); BASOPHILS % (AUTO) 0.7 % (0.0-2.0); EOSINOPHILS % (AUTO) 11.4 % (0.0-6.0); HEMATOCRIT 22 % (39-51); HEMOGLOBIN 7.4 g/dL (13.5-17.5); LYMPHOCYTES # (AUTO) 0.8 /CMM (0.8-4.8); LYMPHOCYTES % (AUTO) 9.3 % (20.0-44.0); MEAN CORPUSCULAR HGB CONC 33 g/dl (31.0-36.0); MEAN CORPUSCULAR VOLUME 91 fL (80-96); MONOCYTES % (AUTO) 11.5 % (2.0-12.0); NEUTROPHILS # (AUTO) 5.5 /CMM (1.8-8.9); NEUTROPHILS % (AUTO) 67.1 % (43.0-81.0); PLATELET COUNT (AUTO) 123 /CMM (150-450); RED BLOOD CELL COUNT(AUTO) 2.46 MIL/uL (4.5-6.0); WHITE BLOOD COUNT (AUTO) 8.3 K/uL (4.3-11.0)
[2019-09-30 06:22] LABS: CALCIUM, SERUM 6.9 mg/dL (8.5-10.1); CREATININE 7.1 mg/dL (0.6-1.3); POTASSIUM 4.1 mmol/L (3.5-5.1)
[2019-09-30] MEDS: BLOOD SUGAR DIAGNOSTIC 1 EACH STRIP IN SCH ×2 (06:32→12:00)
--- NOTE | 2019-09-30 07:26 | NUR ---
MS/RN Pre op check list Pre op check list completed, patient refusing to sign any consent forms until seen by surgeon.
--- NOTE | 2019-09-30 07:59 | NUR ---
MS/RN Pre op blood work Labs ordered ready for surgery later today.
[2019-09-30] MEDS: HEPARIN SODIUM, PORCINE 5000 UNITS/1 ML VIAL SQ SCH ×2 (08:00→21:59)
[2019-09-30] MEDS: CLOPIDOGREL BISULFATE 75 MG TABLET PO SCH (08:00)
[2019-09-30] MEDS: ASPIRIN EC 81 MG TABLET.DR PO SCH (08:00)
[2019-09-30] MEDS: CARVEDILOL 12.5 MG TABLET PO SCH ×2 (08:02→21:53)
[2019-09-30] MEDS: hydrALAZINE HCL 50 MG TABLET PO SCH ×3 (08:03→17:00)
--- NOTE | 2019-09-30 11:00 | NUR ---
MS/RN S/B Dr Anthony Seen by Dr Anthony - for discharge post permcath insertion once director of casework have arrange outpatient HD center.
--- NOTE | 2019-09-30 11:30 | NUR ---
MS/RN S/B Dr Gamez Seen by Dr Gamez - patient now in agreement to have permacath inserted this afternoon. Consnet forms signed.
[2019-09-30] MEDS ORDERED: LIDOCAINE HCL/MPF 1% 30 ML VIAL IJ ONE (12:16)
[2019-09-30] MEDS ORDERED: HEPARIN SODIUM, PORCINE 1,000 UNIT/ML VIAL ONE (12:17)
--- NOTE | 2019-09-30 12:19 | NUR ---
MS/checkroom chief Patient taken to operating room for permcath insertion.
[2019-09-30] MEDS ORDERED: FENTANYL PF 100MCG/2ML AMPUL ONE (12:26)
[2019-09-30] MEDS: diphenhydrAMINE HCL 50 MG/ML VIAL IV PRN (13:36)
--- NOTE | 2019-09-30 13:54 | NUR ---
MS/RN Post op Patient back from operating room, s/p permcath insertion. Vital signs upon return stable, no drainage noted from new insertion site. Orders noted and carried out.
[2019-09-30] MEDS: ACETAMINOPHEN 325 MG TABLET PO PRN (17:58)
--- NOTE | 2019-09-30 19:06 | NUR ---
CHANGE OF SHIFT REPORT Patient in bed, awake, A/O. Dialysis treatment in progress. Patient appears comfortable, denies pain, tolerating RA. Safety measure in place.
--- NOTE | 2019-09-30 21:48 | NUR ---
BS 131mg/dl. Patient refused insulin 2units per sliding scale, education provided.
--- NOTE | 2019-09-30 21:50 | NUR ---
Error entry at 2150 for Oxygen sat 87%, please disregard. Oxygen sat 97%
[2019-09-30] MEDS: ATORVASTATIN 40 MG TABLET PO SCH (21:53)
--- NOTE | 2019-09-30 22:00 | NUR ---
Dialysis treatment done with 1500 fluid drain per dialysis nurse. Patient tolerated well.
[2019-09-30] MEDS ORDERED: DEXTROSE 50%-WATER 50 ML DISP.SYRIN IV PRN (22:30)
--- NOTE | 2019-10-01 06:11 | NUR ---
END OF SHIFT REPORT Patient in bed, stable oxygen saturation on room air. Right IJ perma cath intact, dressing clean and dry. No s/s of bleeding from Heparin injection. Ambulates to the bathroom, standby assist, denies pain. Maintained safety. Will endorse to Oncoming RN.
[2019-10-01] MEDS: BLOOD SUGAR DIAGNOSTIC 1 EACH STRIP IN SCH ×3 (06:46→17:19)
[2019-10-01] MEDS: INSULIN REGULAR, HUMAN 100 UNIT/ML 3 ML VIAL SQ PRN ×3 (06:46→17:19)
--- NOTE | 2019-10-01 07:19 | NUR ---
RN OPENING NOTE PT RECEIVED IN BED AT LOWEST AND LOCKED POSITION WITH SIDE RAILS UP X2, A/OX4 BREATHING EVEN AND UNLABORED ON RA WITH NO S/S OF ANY DISTRESS OR PAIN NOTED AT THIS TIME, NOTED TO HAVE SLIGHT TROUBLE SEEING, AMBULATORY WITH ASSIST PER NIGHT RN, MIDLINE IS PATENT AND INTACT, PERMACATH PLACED YESTERDAY WITH 1500 OUT LAST NIGHT. SAFETY PRECAUTIONS IN PLACE, CALL LIGHT IN REACH, WILL MONITOR ACCORDINGLY
[2019-10-01 08:00] VITALS: BP_SYST 125; BP_SYST 146; BP_DIAS 74; BP_DIAS 77
[2019-10-01] MEDS: CARVEDILOL 12.5 MG TABLET PO SCH (08:15)
[2019-10-01] MEDS: ASPIRIN EC 81 MG TABLET.DR PO SCH (08:15)
[2019-10-01] MEDS: CLOPIDOGREL BISULFATE 75 MG TABLET PO SCH (08:16)
[2019-10-01] MEDS: hydrALAZINE HCL 50 MG TABLET PO SCH ×3 (08:17→16:58)
[2019-10-01] MEDS: HEPARIN SODIUM, PORCINE 5000 UNITS/1 ML VIAL SQ SCH (08:18)
[2019-10-01] MEDS ORDERED: CLOP75TA15 PO (11:17)
--- NOTE | 2019-10-01 15:57 | NUR ---
RN NOTE INFORMED BY MONEY MARKET DEALER DELIA THAT PT WILL HAVE FEMORAL HD CATH REMOVED AT [facility], CASE MANGER DELIA DISCUSSED IT WITH JENNIFER CULLEN AND , PT MADE AWARE
[2019-10-01 16:00] VITALS: BP 134/75
--- NOTE | 2019-10-01 16:52 | NUR ---
RN NOTE PHOTO OF SKIN TAKEN AT THIS TIME AND PLACED IN CHART
[2019-10-01 16:58] VITALS: BP 134/75
--- NOTE | 2019-10-01 18:25 | NUR ---
DISCHARGE NOTE PT WAS DISCHARGED AT THIS TIME IN MEDICALLY STABLE CONDITION BACK HOME AT THIS TIME. IV AND ID BAND WERE REMOVED. RCW PERMACATH IN PLACE AND INTACT. FEMORAL CATH LEFT IN PLACE, PER HARMEET LIN HE DISCUSSED WITH RN SUBHASH AND AND IT WILL BE TAKEN CARE OF AT [facility]. PHOTOS OF SKIN TAKEN AND PLACED IN THE CHART. ALL DISCHARGE PAPERWORK, EXITCARE, AND BELONGING LIST WERE DISCUSSED, SIGNED, AND HANDED TO THE PT. PT WAS INFORMED THAT HE WILL GET DIALYSIS SUNDAY/SUNDAY/SUNDAY AT [facility] AT 12:15 PM, ALL NEEDS ATTENDED TO DURING HER STAY. PT LEFT AT THIS TIME IN STABLE CONDITION BACK HOME IN THEIR PRIVATE CAR
[2019-10-01] MEDS ORDERED: BLOOD SUGAR DIAGNOSTIC 1 EACH STRIP IN SCH (22:00)
== END 2019-10-01 18:30 | disposition home or self-care (01) | DRG 951 ==
LOC: ER 19:10 → ICU 20:48 → MEDSG2 09-27 12:10
PROVIDERS: ADMIT Nurse Practitioner Acute Care
PROC: 0BH17EZ Insertion of Endotracheal Airway into Trachea, Via Natural or Artificial Opening (ICD-10-PCS; principal; 2019-09-22)
PROC: 5A1945Z Respiratory Ventilation, 24-96 Consecutive Hours (ICD-10-PCS; principal; 2019-09-22)
PROC: 5A1D70Z Performance of Urinary Filtration, Intermittent, Less than 6 Hours Per Day (ICD-10-PCS; 2019-09-23)
PROC: 06HY33Z Insertion of Infusion Device into Lower Vein, Percutaneous Approach (ICD-10-PCS; 2019-09-23)
PROC: 30233N1 Transfusion of Nonautologous Red Blood Cells into Peripheral Vein, Percutaneous Approach (ICD-10-PCS; 2019-09-25)
PROC: 027034Z Dilation of Coronary Artery, One Artery with Drug-eluting Intraluminal Device, Percutaneous Approach (ICD-10-PCS; 2019-09-26)
PROC: B211YZZ Fluoroscopy of Multiple Coronary Arteries using Other Contrast (ICD-10-PCS; 2019-09-26)
PROC: 4A023N7 Measurement of Cardiac Sampling and Pressure, Left Heart, Percutaneous Approach (ICD-10-PCS; 2019-09-26)
PROC: 0JH63XZ Insertion of Tunneled Vascular Access Device into Chest Subcutaneous Tissue and Fascia, Percutaneous Approach (ICD-10-PCS; 2019-09-30)
PROC: 02HV33Z Insertion of Infusion Device into Superior Vena Cava, Percutaneous Approach (ICD-10-PCS; 2019-09-30)
PROC: B518YZA Fluoroscopy of Superior Vena Cava using Other Contrast, Guidance (ICD-10-PCS; 2019-09-30)
DX: J96.01 Acute respiratory failure with hypoxia (principal); I21.4 Non-ST elevation (NSTEMI) myocardial infarction; J69.0 Pneumonitis due to inhalation of food and vomit; G93.41 Metabolic encephalopathy; I50.31 Acute diastolic (congestive) heart failure; D69.6 Thrombocytopenia, unspecified; E11.22 Type 2 diabetes mellitus with diabetic chronic kidney disease; N18.4 Chronic kidney disease, stage 4 (severe); E87.2 Acidosis; I13.0 Hypertensive heart and chronic kidney disease with heart failure and stage 1 through stage 4 chronic kidney disease, or unspecified chronic kidney disease; E87.0 Hyperosmolality and hypernatremia; I25.2 Old myocardial infarction; Z99.2 Dependence on renal dialysis; Z87.891 Personal history of nicotine dependence; D63.1 Anemia in chronic kidney disease; I25.10 Atherosclerotic heart disease of native coronary artery without angina pectoris; J98.11 Atelectasis; I16.9 Hypertensive crisis, unspecified; N17.9 Acute kidney failure, unspecified; E78.5 Hyperlipidemia, unspecified
CPT/HCPCS: 31720; 36410; 36415; 36600; 71045-TC; 80048-TC; 80053-TC; 80061-TC; 80076-TC; 81000-TC; 82803-TC; 82962-TC; 83540-TC; 83605-TC; 83735-TC; 83880; 84100-TC; 84443-TC; 84484-TC; 85025-TC; 85610-TC; 85730-TC; 86704; 86705; 86706; 86803; 86850-TC; 86921-TC; 87040-TC; 87081-TC; 87086-TC; 87340; 90935-TC; 93307-TC; 93452; 94002-TC; 94003-TC; 94799-TC; A4216; A6403; C1750; G0378; J1200; J1644; J1815; J1940; J2250; J2405; J2543; J2916; J3010; J3370; J3475; J3490; J7030; J7050; J7060; P9016-BL; Q9967